=== PATIENT | female | born 1955 | race Caucasian/White ===

== ENCOUNTER → 2016-08-10 | Outpatient (CLI) | payer BC ==
--- NOTE | ~2016-08-10 | CR63 ---
[facility] A Service of [facility] & [facility] RADIOLOGY TEXT RESULTS PATIENT: FANNY GAITAN LOCATION: [facility] : 59 UNIT #: [id number] AGE: [address]: COLLEEN BRODY APRN SEX: F ORDER DR: [id number] [address] [address] [id number] O MR#: [id number] #: [id number] NAME: FANNY GAITAN : 1955 SEX: F STUDY DATE/TIME: 08/10/2016 9:42 UNIT: [facility] ROOM: STUDY DESCRIPTION: CR Chest 2 View Attending Physician: Colleen Brody Aprn Ordering Physician: Colleen Brody Aprn Primary Care Physician: Colleen Brody Aprn MEDICAL IMAGING REPORT This report is preliminary unless electronic signature is present. EXAM PA and lateral chest radiograph INDICATIONS Pain in the right side for 1 week. FINDINGS PA and lateral examination of the chest upright shows a good expansion of the parenchyma with a normal distribution of the pulmonary vascularity. There is no indication of congestion, effusion, infiltrate, tumor, or nodular density. The pleural reflections and diaphragmatic contours are normal. The cardiac silhouette and mediastinal anatomy is within normal limits. IMPRESSION Negative Dictated by... Julissa Lambert M.D. THIS IS AN ELECTRONICALLY VERIFIED REPORT Julissa Lambert M.D. at 08/13/2016 12:58 PM AFF/rnr TD: 08/11/2016 02:50 JOB #: [id number] MEDICAL IMAGING REPORT Page 1 of 1
== END | disposition home or self-care (01) ==
LOC: SRAD 09:36
DX: R07.9 Chest pain, unspecified (principal)
CPT/HCPCS: 71020